=== PATIENT | male | born 1995 | race Caucasian/White ===

== ENCOUNTER 2019-04-27 08:12 | Day surgery (SDC) | payer MEDICAID ==
[~2019-04-27] VITALS: Ht 170.2 cm; Wt 61.4 kg
[2019-04-27] VITALS (8 sets, daily range): BP systolic 115–135; BP diastolic 61–99; Ht 170.2 cm; Wt 61.4 kg
--- NOTE | ~2019-04-27 | OP ---
PATIENT NAME: JENNY GRIMES MEDICAL RECORD: [id number] LOCATION:[id number] ADMISSION DATE:04/27/19 SURGEON: GABRIEL URBINA MD DATE OF OPERATION: 04/27/2019 PREOPERATIVE DIAGNOSES: 1. Acute appendicitis with localized peritonitis. 2. Asthma. POSTOPERATIVE DIAGNOSES: 1. Acute appendicitis with localized peritonitis. 2. Asthma. PROCEDURE: Laparoscopic appendectomy. SURGEON: Gabriel Urbina MD REPORT OF PROCEDURE: The patient's abdomen was prepped and draped in sterile fashion. A cutdown was made on the superior aspect of the umbilicus. The patient had a small periumbilical hernia. We extended the opening of this hernia superiorly and bluntly penetrated the abdominal cavity, 0 Vicryls were placed in the fascia bilaterally and the Sarah port was placed under direct visualization, a 5 mm trocar was placed in the left lower quadrant and another was placed in the suprapubic region. The appendix was easily visualized and noted to be markedly inflamed with no signs of perforation or gangrene. We made a window at the base of the mesoappendix and transected the mesoappendix using a 45 white load Endo-ATIF stapler. The appendix was then transected at the base of the cecum using a 45 blue load Endo-ATIF stapler. The appendix was placed into an Endo Catch bag. We inspected the staple lines and they appeared to be intact with no signs of any leakage and minimal bleeding. Any bleeding that there was treated with electrocautery. We then irrigated out the right lower quadrant and the pelvis. At this point, the ports and insufflation were then removed. The appendix was taken out through the umbilicus. The umbilical fascia was closed with interrupted 0 Vicryls times 3. The wounds were then irrigated out with normal saline and infused with 10 mL of 0.25% Marcaine with epinephrine. The skin incisions were closed with subcutaneous 5-0 Monocryl and dressed appropriately. COMPLICATIONS: None. CONDITION: Stable. ANESTHESIA: General endotracheal and local. BLOOD LOSS: Minimal. TRANSINT:[id number] Voice Confirmation ID: [id number] DOCUMENT ID: [id number] OPERATIVE REPORT [id number] JENNY GRIMES GABRIEL URBINA MD CC: [id number] DICTATION DATE: 04/27/19 1046 DIRECTOR OF OPERATIONS SUPPORT: 04/27/19 2225 DIS IN 04/27/19 [facility] [address] [facility] [place] [address]
[2019-04-27] MEDS ORDERED: HYDROCODON-ACE1 EA10 PO (10:48)
--- NOTE | 2019-04-27 11:30 | NUR ---
PATIENT SLEEPING. WILL COMPLETE OPS ADMISSION WHEN AWAKE.
--- NOTE | 2019-04-27 12:00 | NUR ---
PATIENT CONTINUES SLEEPING. VITALS REMAIN STABLE. WILL COMPLETE ASSESSMENT WHEN AWAKE.
--- NOTE | 2019-04-27 12:59 | NUR ---
PATIENT AWAKE AND ABLE TO ANSWER ADMISSION QUESTIONS. STATES MOM WILL IMPRESS ASSOCIATE FROM HOSPITAL. WANTS SOME TIME TO WAKE UP AND STATES WILL LET NURSE KNOW WHEN READY. WILL LET DC MAMMOGRAPHY SUPERVISOR KNOW TO START PAPERWORK.
--- NOTE | 2019-04-27 14:08 | NUR ---
DISCHARGE EDUCATION PROVIDED BOTH WRITTEN AND VERBAL TO PATIENT AND FAMILY AT BEDSIDE. VERBALIZED UNDERSTANDING. DENIES FURTHER QUESTIONS. IV REMOVED FROM RIGHT AC WITH TIP INTACT. RX FOR PRN NORCO GIVEN TO PATIENT AT DISCHARGE. VERBALIZED UNDERSTANDING. PATIENT DISCHARGED HOME WITH PARENTS WITH ALL BELONGINGS.
== END 2019-04-27 14:34 | disposition home or self-care (01) ==
LOC: OBSVTIME → D.OPS 08:12 → D.ER 08:12 → D.MS 08:42 → D.ER 08:42 → D.MS 08:42 → OBSVTIME 09:26 → EDSTATUS 09:30 → D.ER 09:38 → D.MS 14:34 → D.OPS 14:34 → D.MS 14:34
PROVIDERS: ATTEND Surgery
DX: K35.30 Acute appendicitis with localized peritonitis, without perforation or gangrene (principal); J45.909 Unspecified asthma, uncomplicated